=== PATIENT | female | born 1975 | race Caucasian/White ===

== ENCOUNTER 2022-12-19 14:23 | Emergency (ER) | payer BC, SELFPAY ==
--- OUTSIDE RECORDS SUMMARY | 2022-12-19 14:28 | XMS REPORT | Continuity of Care Document ---
:1975 Author Organization [facility] t Address [address] [place] [address] Dr. [address] [place] [address] Care Team Providers Name Role Phone Tere Goldstein Primary Care Physician Tere Goldstein Attending Clinician SHAI SHERIFF Attending Clinician Unavailable Shai Navas Attending Clinician JORDAN MACIAS Attending Clinician Unavailable Jordan Macias DO Attending Clinician SIS IBRAHIM Attending Clinician Unavailable RENAY CALL Attending Clinician Unavailable Renay Espinoza Attending Clinician Giselle Smith Attending Clinician TERE FERRARA Attending Clinician Unavailable Yemi Palencia MD Attending Clinician Sis Walker Attending Clinician Morelia Michael MD Attending Clinician MORELIA MICHAEL Attending Clinician Unavailable Doctor Unassigned, Zeba Attending Clinician Unavailable JEREMIAS BATES Attending Clinician Unavailable Jeremias Aiken Attending Clinician Сергей DIAZ, Kerry Parish Attending Clinician Unavailable GISELLE PRADO Attending Clinician Unavailable Only, Ang Db Test Attending Clinician Unavailable WILLY REDMOND Attending Clinician Unavailable RUSTY LEDBETTER Attending Clinician Unavailable LANIE ARBOLEDA Attending Clinician Unavailable NGUYỄN MACDONALD Attending Clinician Unavailable SHAI SHERIFF Admitting Clinician Unavailable JORDAN MACIAS Admitting Clinician Unavailable JEREMIAS BATES Admitting Clinician Unavailable NGUYỄN MACDONALD Admitting Clinician Unavailable Problems Condition Condition Condition Status Onset Resolution Last Treating Co mments Source Name Details Category Date Date Treatment Clinician Date Acute Acute Disease Active Univers bacterial bacterial 6- ity of otitis otitis 00:00: [place] media, media, 00 Medical bilateral bilateral Bran ch Acute Acute Disease Active Univers otalgia, otalgia, 6-22 [place] Subacute Subacute Disease Active Unive rs maxillary maxillary 6 [place] of sinusitis sinusitis 00:[place] [facility] [place] Acute Acute Disease Active [facility] otalgia, otalgia, 05-16 [place] of bilateral bilateral 00:[place] [facility] [place] Non-produc Non-produc Disease Active U nivers tive cough tive cough -22 it y of 00:00: Medical Branch Obesity Obesity Disease Active Univers (BMI (BMI 7-09 ity of 30-39.9) 30-39.9) 00:00: Medical Branch Allergies, Adverse Reactions, Alerts Allergy Allergy Status Severity Reaction(s) Onset Inactive Treating Comm ents Source Name Type Date Date Clinician Influenz Propensi Active Nausea 2018-11 Univer s a ty to and/or 2-31 ity of Vacc,Tri adverse Vomiting 00:00: [place] 2007 reaction 00 Medical (Live) s Branch INFLUENZ DRUG Active N/V 2018-11 Univers A 2-31 ity of VACC,TRI 00:00: 2007 Medical (LIVE) Branch Hydrocod Propensi Active Hives 2017-11 Univer s one ty to 2-27 ity of adverse 00:00: [place] reaction Medical s Branch Butorpha Propensi Active Hives 2017-11 Univer s nol ty to 2-27 ity of Tartrate adverse 00:00: [place] reaction Medical s Branch Pentazoc Propensi Active Hives 2017-11 Univer s ine ty to 2-27 ity of Lactate adverse 00:00: [place] reaction 00 Medical s Branch HYDROCOD DRUG Active Hives 2018- Univers ONE INGREDI 2-27 ity of 00:00: [place] 00 Medical Branch BUTORPHA DRUG Active Hives 2018- Univers NOL INGREDI 2-27 ity of TARTRATE 00:00: [place] 00 Medical Branch PENTAZOC DRUG Active Hives 2018- Univers INE INGREDI 2-27 ity of LACTATE 00:00: [place] 00 Medical Branch Aspirin Propensi Active Hives 2017-0 Univers ty to 7 ity of adverse 00:00: [place] reaction 00 Medical s Branch Codeine Propensi Active Anaphylaxis 2017-0 Un tomasz ty to 06-02 ity of adverse 00:00: [place] reaction 00 Medical s Branch Hydromor Propensi Active Hives 2017-0 Univer s phone ty to 06-02 ity of (Bulk) adverse 00:00: [place] reaction 00 Medical s Branch Levoflox Propensi Active Anaphylaxis 2017-0 U nivers acin ty to 06-02 ity of adverse 00:00: [place] reaction 00 Medical s Branch Moxiflox Propensi Active Hives 2017-0 Univer s acin ty to 06-02 ity of adverse 00:00: [place] reaction 00 Medical s Branch Penicill Propensi Active Anaphylaxis 2017-0 U nivers in ty to 06-02 ity of adverse 00:00: [place] reaction 00 Medical s Branch Sulfa Propensi Active Anaphylaxis 2017-0 Uni vers (Sulfona ty to 06-02 ity of mide adverse 00:00: [place] Antibiot reaction 00 Medica l ics) s Branch Tramadol Propensi Active Hives 2017-0 Univer s ty to 06-02 ity of adverse 00:00: [place] reaction 00 Medical s Branch ASPIRIN DRUG Active Hives 2017-0 Univers INGREDI 7- ity of 00:00: [place] 00 Medical Branch CODEINE DRUG Active Anaphylaxis 2017-0 Univ ers INGREDI 06-02 ity of 00:00: [place] 00 Medical Branch HYDROMOR DRUG Active Hives 2017-0 Univers PHONE 7- ity of (BULK) 00:00: [place] 00 Medical Branch LEVOFLOX DRUG Active Anaphylaxis 2017-0 Uni vers ACIN INGREDI - ity of 00:00: [place] 00 Medical Branch MOXIFLOX DRUG Active Hives 2017-0 Univers ACIN INGREDI 06-02 ity of 00:00: [place] 00 Medical Branch PENICILL DRUG Active Anaphylaxis Uni vers IN INGREDI 06-02 ity of 00:00: [place] 00 Medical Branch SULFA Drug Active Anaphylaxis Unive rs (SULFONA Class 06-02 ity of MIDE 00:00: [place] ANTIBIOT 00 Medical ICS) Branch TRAMADOL DRUG Active Hives Univers INGREDI 06-02 ity of 00:00: [place] 00 Medical Branch Social History Social Habit Start Date Stop Date Quantity Comments Source Exposure to 2022-11-29 2022-12-09 Yes University SARS-CoV-2 (event) 00:00:00 17:27:00 [facility] Alcohol intake 2022-12-09 2022-12-09 Current University of 00:00:00 00:00:00 non-drinker of [facility] alcohol Branch (finding) Cigarettes smoked 2016-05-31 2016-05-31 Univers ity of current (pack per 00:00:00 00:00:00 [facility] ) - Reported Branch Cigarette 2016-05-31 2016-05-31 University of pack-years 00:00:00 00:00:00 [facility] Tobacco use and 2016-05-31 2016-05-31 Smokeless Universit y of exposure 00:00:00 00:00:00 tobacco non-user [facility] dical [place] Tobacco Comment 2016-05-31 2016-05-31 1-2 packs per Univer sity of 00:00:00 00:00:00 day [facility] History of tobacco 2014-06-09 Cigarette Smoker University of use 00:00:00 [facility] Sex Ass[birth year] Universit y of 00:00:00 00:00:00 [facility] Smoking Status Start Date Stop Date Source Ex-smoker 2016-05-31 00:00:00 2016-05-31 00:00:00 Universi ty of [facility] Medications Ordered Filled Start Stop Current Ordering Indication Dosage Frequency Signature Comments Components Source Medication Medication Date Date Medication? Clinician (SIG) Name Name NaCl 0.9% 2022- No 1000mL at 999 Uni vers (NS) bolus 1-16 01-16 mL/hr, ity of infusion 01:30: 01:30 1,000 mL, [place] 1,000 mL 00 :00 IV Medical Infusion, Branch ONCE, 1 dose, On 12/09/22 at 1930, YANN ipratropium 2022- No 6mL 6 mL, Univ ers -albuteroL 12-10 Inhalation it y of (DUONEB) 00:15: 23:41 , ONCE, 1 [place] 0.5 mg-3 00 :00 dose, On Medical mg(2.5 mg [facility] base)/3 mL 12/09/22 at nebulizer 1815, solution 6 Routine mL acetaminoph 2022- No 650mg 650 mg, U nivers en 12-09 Oral, ity of (TYLENOL) 23:45: 23:43 ONCE, 1 [place] tablet 650 00 :00 dose, On Medic al mg [facility] 12/09/22 at 1745, YANN dexamethaso 2022- No 10mg 10 mg, Uni vers ne sod phos 12-09 Intramuscu i ty of PF 23:45: 23:44 lar, ONCE, [place] injection 00 :00 1 dose, On Medi ruddy 10 mg [facility] 12/09/22 at 1745, 1 mL azithromyci 0 Yes [id number] 250mg Take 1 Univers n 250 mg 1-15 tablet by ity of tablet 00:00: mouth in [place] 00 the Medical morning. Branch benzonatate 0 Yes [id number] 100mg Take 1 Univers 100 mg 1-15 capsule by ity of capsule 00:00: mouth 3 [place] 00 (three) Medical times Branch daily as needed for Cough. dextrometho 0 Yes [id number] 10mL Take 10 mL Univers rphan-guaif 1-15 by mouth ity of enesin 00:00: every 6 [place] 10-100 mg/5 00 (six) Medical mL solution hours as Bran ch needed for Cough. methylPREDN 0 Yes [id number] Take by Univers ISolone 4 1-15 mouth ity of mg tablets 00:00: [place]INSTRU [place] 00 CTIONS. Medical follow Branch package directions albuterol 0 Yes [id number] 2{puff} Inhale 2 Univers 90 1-15 Puffs ity of mcg/actuati 00:00: every 4 [place] on inhaler 00 (four) Medical hours as Branch needed for Wheezing or Shortness of Breath. azithromyci 3-0 Yes [id number] 250mg Take 1 Univers n 250 mg 1-15 tablet by ity of tablet 00:00: mouth in [place] 00 the Medical morning. Branch benzonatate 3-0 Yes [id number] 100mg Take 1 Univers 100 mg 1-15 capsule by ity of capsule 00:00: mouth 3 [place] 00 (three) Medical times Branch daily as needed for Cough. dextrometho 2023-0 Yes [id number] 10mL Take 10 mL Univers rphan-guaif 1-15 by mouth ity of enesin 00:00: every 6 [place] 10-100 mg/5 00 (six) Medical mL solution hours as Bran ch needed for Cough. methylPREDN 2022-0 Yes [id number] Take by Univers ISolone 4 1-15 mouth ity of mg tablets 00:00: [place] CTIONS. Medical follow Branch package directions albuterol 2022-0 Yes [id number] 2{puff} Inhale 2 Univers 90 1-15 Puffs ity of mcg/actuati 00:00: every 4 [place] on inhaler 00 (four) Medical hours as Branch needed for Wheezing or Shortness of Breath. azithromyci 2022-0 Yes [id number] 250mg Take 1 Univers n 250 mg 1-15 tablet by ity of tablet 00:00: mouth in [place] 00 the Medical morning. Branch benzonatate 3-0 Yes [id number] 100mg Take 1 Univers 100 mg 1-15 capsule by ity of capsule 00:00: mouth 3 [place] 00 (three) Medical times Branch daily as needed for Cough. dextrometho 2023-0 Yes [id number] 10mL Take 10 mL Univers rphan-guaif 1-15 by mouth ity of enesin 00:00: every 6 [place] 10-100 mg/5 00 (six) Medical mL solution hours as Bran ch needed for Cough. methylPREDN 3-0 Yes [id number] Take by Univers ISolone 4 1-15 mouth ity of mg tablets 00:00: [place]INSTRU [place] 00 CTIONS. Medical follow Branch package directions albuterol Yes [id number] 2{puff} Inhale 2 Univers 90 1-15 Puffs ity of mcg/actuati 00:00: every 4 [place] on inhaler 00 (four) Medical hours as Branch needed for Wheezing or Shortness of Breath. lisinopriL Yes [id number] 10mg Take 1 Univers 10 mg 1-06 tablet by ity of tablet 00:00: mouth in [place] the Medical morning. Branch MUST BE SEEN FOR FURTHER REFILLS lisinopriL Yes [id number] 10mg Take 1 Univers 10 mg 1-06 tablet by ity of tablet 00:00: mouth in [place] the Medical morning. Branch MUST BE SEEN FOR FURTHER REFILLS lisinopriL Yes [id number] 10mg Take 1 Univers 10 mg 1-06 tablet by ity of tablet 00:00: mouth in [place] the Medical morning. Branch MUST BE SEEN FOR FURTHER REFILLS lisinopriL Yes [id number] 10mg Take 1 Univers 10 mg 1-06 tablet by ity of tablet 00:00: mouth in [place] the Medical morning. Branch MUST BE SEEN FOR FURTHER REFILLS lisinopriL 2021-11 Yes [id number] 10mg Take 1 Univers 10 mg 2-12 tablet by ity of tablet 00:00: mouth in [place] the Medical morning. Branch MUST BE SEEN FOR FURTHER REFILLS lisinopriL 2021-11 No [id number] 10mg Take 1 Univers 10 mg 2-12 01-06 tablet by ity of tablet 00:00: 00:00 mouth in [place] 00 :00 the Medical morning. Branch MUST BE SEEN FOR FURTHER REFILLS lisinopriL 2021-11 Yes [id number] 10mg Take 1 Univers 10 mg 1-07 tablet by ity of tablet 00:00: mouth in [place] 00 the Medical morning. Branch MUST BE SEEN FOR FURTHER REFILLS lisinopriL 2021-11 No [id number] 10mg Take 1 Univers 10 mg 1-07 12-12 tablet by ity of tablet 00:00: 00:00 mouth in [place] 00 :00 the Medical morning. Branch MUST BE SEEN FOR FURTHER REFILLS ondansetron 2021- No [id number] 4mg U nivers (ZOFRAN-ODT 5-12 04-19 ity of ) 15:30: 14:30 [place] disintegrat 00 :00 Medical ing tablet Branch 4 mg ondansetron 2021- No [id number] 4mg 4 mg, Univers (ZOFRAN-ODT -12 04-19 Oral, ity of ) 15:30: 14:30 ONCE, 1 [place] disintegrat 00 :00 dose, On Medi ruddy ing tablet [place] Branch 4 mg 04/12/22 at 1030, Routine ondansetron 2021- No [id number] 4mg Take 1 Univers 4 mg 5-19 05-25 tablet by ity of disintegrat 00:00: 04:59 [place] ing tablet 00 :00 every 8 Medica l (eight) Branch hours as needed for Nausea and Vomiting (N/V) for up to 5 days. lisinopriL Yes [id number] 10mg Take 1 Univers 10 mg 5-10 tablet by ity of tablet 00:00: mouth [place] 00 daily. Medical MUST BE Branch SEEN FOR FURTHER REFILLS lisinopriL 0 Yes [id number] 10mg Take 1 Univers 10 mg 5-10 tablet by ity of tablet 00:00: mouth [place] 00 daily. Medical MUST BE Branch SEEN FOR FURTHER REFILLS lisinopriL 0 Yes [id number] 10mg Take 1 Univers 10 mg 5-10 tablet by ity of tablet 00:00: mouth [place] 00 daily. Medical MUST BE Branch SEEN FOR FURTHER REFILLS lisinopriL 0 Yes [id number] 10mg Take 1 Univers 10 mg 5-10 tablet by ity of tablet 00:00: mouth [place] 00 daily. Medical MUST BE Branch SEEN FOR FURTHER REFILLS lisinopriL 2021- No [id number] 10mg Take 1 Univers 10 mg 5-10 11-07 tablet by ity of tablet 00:00: 00:00 mouth [place] 00 :00 daily. Medical MUST BE Branch SEEN FOR FURTHER REFILLS lisinopriL 2021- No [id number] 10mg Take 1 Univers 10 mg 5-03 05-10 tablet by ity of tablet 00:00: 00:00 mouth [place] 00 :00 daily. Medical MUST BE Branch SEEN FOR FURTHER REFILLS rosuvastati 2021- No [id number] 20mg Take 1 Univers n 20 mg 5-03 05-10 tablet by ity of tablet 00:00: 00:00 mouth at [place] 00 :00 bedtime. Medical Branch doxycycline 2021- No [id number] 100mg Take 1 Univers hyclate 100 6-22 05-10 tablet by it y of mg tablet 00:00: 00:00 mouth 2 [place] 00 :00 (two) Medical times Branch daily. ibuprofen 2021- No [id number] 600mg Take 1 Univers 600 mg 6-22 05-10 tablet by ity of tablet 00:00: 00:00 mouth [place] 00 :00 every 6 Medical (six) Branch hours as needed for Pain (scale 4-6) or Temp > 38.5 C. cetirizine 2021- No [id number] 10mg Take 1 Univers (ZYRTEC) 10 6-22 05-10 tablet by it y of mg tablet 00:00: 00:00 mouth at [place] 00 :00 bedtime as Medical needed for Branch Allergies. benzonatate 2021- No [id number] 100mg Take 1 Univers (TESSALON 6-22 05-10 capsule by ity of SHAMEKAES) 100 00:00: 00:00 mouth 3 [place] mg capsule 00 :00 (three) Medica l times Branch daily. OXYCODONE Yes 7.5mg Take 7.5 Uni vers HCL/ACETAMI 6-10 mg by ity of NOPHEN 16:27: mouth. [place] (PERCOCET 19 Take two Medica l ORAL) tablet a Branch day HYDROXYZINE Yes 25mg Take 25 mg Univers HCL ORAL 6-10 by mouth. ity of 16:27: Takes 2 [place] 19 tabs at Medical Branch AMITRIPTYLI Yes 10mg Take 10 mg Univers NE HCL 6-10 by mouth ity of (AMITRIPTYL 16:27: at [place] INE ORAL) 19 bedtime. Medica l Branch OXYCODONE Yes 7.5mg Take 7.5 Uni vers HCL/ACETAMI 6-10 mg by ity of NOPHEN 16:27: mouth. [place] (PERCOCET 19 Take two Medica l ORAL) tablet a Branch day HYDROXYZINE Yes 25mg Take 25 mg Univers HCL ORAL 6-10 by mouth. ity of 16:27: Takes 2 [place] 19 tabs at Medical [place] AMITRIPTYLI Yes 10mg Take 10 mg Univers NE HCL 6-10 by mouth ity of (AMITRIPTYL 16:27: at [place] INE ORAL) 19 bedtime. Medica Branch OXYCODONE Yes 7.5mg Take 7.5 Uni vers HCL/ACETAMI 6-10 mg by ity of NOPHEN 16:27: mouth. [place] (PERCOCET 19 Take two Medica l ORAL) tablet a Branch day HYDROXYZINE Yes 25mg Take 25 mg Univers HCL ORAL 6-10 by mouth. ity of 16:27: Takes 2 [place] 19 tabs at [facility] AMITRIPTYLI Yes 10mg Take 10 mg Univers NE HCL 6-10 by mouth ity of (AMITRIPTYL 16:27: at [place] INE ORAL) 19 bedtime. [facility] Branch OXYCODONE Yes 7.5mg Take 7.5 Uni vers HCL/ACETAMI 6-10 mg by ity of NOPHEN 16:27: mouth. [place] (PERCOCET 19 Take two Medica l ORAL) tablet a Branch day HYDROXYZINE Yes 25mg Take 25 mg Univers HCL ORAL 6-10 by mouth. ity of 16:27: Takes 2 [place] 19 tabs at [facility] AMITRIPTYLI Yes 10mg Take 10 mg Univers NE HCL 6-10 by mouth ity of (AMITRIPTYL 16:27: at [place] INE ORAL) 19 [facility]. [facility] OXYCODONE Yes 7.5mg Take 7.5 Uni vers HCL/ACETAMI 6-10 mg by ity of NOPHEN 16:27: mouth. [place] (PERCOCET 19 Take two Medica l ORAL) tablet a Branch day HYDROXYZINE Yes 25mg Take 25 mg Univers HCL ORAL 6-10 by mouth. ity of 16:27: Takes 2 [place] 19 tabs at [facility] AMITRIPTYLI Yes 10mg Take 10 mg Univers NE HCL 6-10 by mouth ity of (AMITRIPTYL 16:27: at [place] INE ORAL) 19 bedtime. Medica l Branch OXYCODONE 0 Yes 7.5mg Take 7.5 Uni vers HCL/ACETAMI 6-10 mg by ity of NOPHEN 16:27: mouth. [place] (PERCOCET 19 Take two Medica l ORAL) tablet a Branch day HYDROXYZINE 0 Yes 25mg Take 25 mg Univers HCL ORAL 6-10 by mouth. ity of 16:27: Takes 2 [place] 19 tabs at Medical [place] AMITRIPTYLI 0 Yes 10mg Take 10 mg Univers NE HCL 6-10 by mouth ity of (AMITRIPTYL 16:27: at [place] INE ORAL) 19 bedtime. Medica l Branch OXYCODONE 0 Yes 7.5mg Take 7.5 Uni vers HCL/ACETAMI 6-10 mg by ity of NOPHEN 16:27: mouth. [place] (PERCOCET 19 Take two Medica l ORAL) tablet a Branch day HYDROXYZINE Yes 25mg Take 25 mg Univers HCL ORAL 6-10 by mouth. ity of 16:27: Takes 2 [place] 19 tabs at [facility] AMITRIPTYLI 0 Yes 10mg Take 10 mg Univers NE HCL 6-10 by mouth ity of (AMITRIPTYL 16:27: at [place] INE ORAL) 19 bedtime. Medica l Branch OXYCODONE Yes 7.5mg Take 7.5 Uni vers HCL/ACETAMI 6-10 mg by ity of NOPHEN 16:27: mouth. [place] (PERCOCET 19 Take two Medica l ORAL) tablet a Branch day HYDROXYZINE Yes 25mg Take 25 mg Univers HCL ORAL 6-10 by mouth. ity of 16:27: Takes 2 [place] 19 tabs at [facility] AMITRIPTYLI 0 Yes 10mg Take 10 mg Univers NE HCL 6-10 by mouth ity of (AMITRIPTYL 16:27: at [place] INE ORAL) 19 bedtime. Medica l Branch OXYCODONE 2020-0 Yes 7.5mg Take 7.5 Uni vers HCL/ACETAMI 6-10 mg by ity of NOPHEN 16:27: mouth. [place] (PERCOCET 19 Take two Medica l ORAL) tablet a Branch day HYDROXYZINE Yes 25mg Take 25 mg Univers HCL ORAL 6-10 by mouth. ity of 16:27: Takes 2 [place] 19 tabs at Medical Branch AMITRIPTYLI Yes 10mg Take 10 mg Univers NE HCL 6-10 by mouth ity of (AMITRIPTYL 16:27: at [place] INE ORAL) 19 bedtime. Medica l Branch OXYCODONE Yes 7.5mg Take 7.5 Uni vers HCL/ACETAMI 6-10 mg by ity of NOPHEN 16:27: mouth. [place] (PERCOCET 19 Take two Medica l ORAL) tablet a Branch day HYDROXYZINE Yes 25mg Take 25 mg Univers HCL ORAL 6-10 by mouth. ity of 16:27: Takes 2 [place] 19 tabs at Medical Branch AMITRIPTYLI Yes 10mg Take 10 mg Univers NE HCL 6-10 by mouth ity of (AMITRIPTYL 16:27: at [place] INE ORAL) 19 bedtime. Medica l Branch ondansetron 2021- No [id number] 4mg Take 1 Univers (ZOFRAN 01-03 05-10 tablet by ity of ODT) 4 mg 00:00: 00:00 mouth [place] disintegrat 00 :00 every 8 Medic al ing tablet (eight) Branch hours as needed for Nausea and Vomiting (N/V). tamsulosin 2021- No [id number] .4mg Take 1 Univers 0.4 mg 24 01-03 05-10 capsule by ity of hr capsule 00:00: 00:00 mouth at [place] 00 :00 bedtime. Medical Branch phenazopyri 2021- No [id number] 200mg Take 1 Univers dine 200 mg 01-03 05-10 tablet by it y of tablet 00:00: 00:00 mouth 3 [place] 00 :00 (three) Medical times Branch daily. fluticasone 2017-11- No [id number] 2{spray Use 2 Univers 50 01-21 05-10 } Sprays in ity of mcg/actuati 00:00: 00:00 each [place] on nasal 00 :00 nostril Medical spray daily. Branch Immunizations Ordered Filled Immunization Date Status Comments [facility] e Immunization Name Name SARS-COV-2 COVID-19 2021-03-09 Completed Unive rsity of PFIZER VACCINE 00:00:00 [facility] SARS-COV-2 COVID-19 2021-03-09 Completed Unive rsity of PFIZER VACCINE 00:00:00 [facility] Branch SARS-COV-2 COVID-19 2021-03-09 Completed Unive rsity of PFIZER VACCINE 00:00:00 [facility] SARS-COV-2 COVID-19 2021-03-09 Completed Unive rsity of PFIZER VACCINE 00:00:00 [facility] Branch SARS-COV-2 COVID-19 2021-03-09 Completed Unive rsity of PFIZER VACCINE 00:00:00 [facility] Branch SARS-COV-2 COVID-19 2021-03-09 Completed Unive rsity of PFIZER VACCINE 00:00:00 [facility] SARS-COV-2 COVID-19 2021-03-09 Completed Unive rsity of PFIZER VACCINE 00:00:00 [facility] SARS-COV-2 COVID-19 2021-03-09 Completed Unive rsity of PFIZER VACCINE 00:00:00 [facility] SARS-COV-2 COVID-19 2021-03-09 Completed Unive rsity of PFIZER VACCINE 00:00:00 [facility] SARS-COV-2 COVID-19 2021-03-09 Completed Unive rsity of PFIZER VACCINE 00:00:00 [facility] SARS-COV-2 COVID-19 2021-02-16 Completed Unive rsity of PFIZER VACCINE 00:00:00 [facility] SARS-COV-2 COVID-19 2021-02-16 Completed Unive rsity of PFIZER VACCINE 00:00:00 [facility] SARS-COV-2 COVID-19 2021-02-16 Completed Unive rsity of PFIZER VACCINE 00:00:00 [facility] SARS-COV-2 COVID-19 2021-02-16 Completed Unive rsity of PFIZER VACCINE 00:00:00 [facility] SARS-COV-2 COVID-19 2021-02-16 Completed Unive rsity of PFIZER VACCINE 00:00:00 [facility] SARS-COV-2 COVID-19 2021-02-16 Completed Unive rsity of PFIZER VACCINE 00:00:00 [facility] SARS-COV-2 COVID-19 2021-02-16 Completed Unive rsity of PFIZER VACCINE 00:00:00 [facility] SARS-COV-2 COVID-19 2021-02-16 Completed Unive rsity of PFIZER VACCINE 00:00:00 [facility] SARS-COV-2 COVID-19 2021-02-16 Completed Unive rsity of PFIZER VACCINE 00:00:00 [facility] SARS-COV-2 COVID-19 2021-02-16 Completed Unive rsity of PFIZER VACCINE 00:00:00 [facility] Vital Signs Vital Name Observation Time Observation Value Comments Source Systolic blood 2022-12-10 01:41:05 116 mm[Hg] Univer sity of pressure [facility] Diastolic blood 2022-12-10 01:41:05 67 mm[Hg] Unive rsity of [facility] Heart rate 2022-12-10 01:41:05 100 /min [facility] Body temperature 2022-12-10 01:41:[address] [facility] ersity of [facility] Respiratory rate 2022-12-10 01:41:05 19 /min [facility] in 2022-12-10 01:41:05 100 /min [place] of Arterial blood by [facility] Pulse oximetry [place] Body height 2022-12-09 23:29:00 154.9 cm [facility] Body weight 2022-12-09 23:29:00 73.936 kg [facility] BMI 2022-12-09 23:29:00 30.80 kg/m2 [facility] Systolic blood 2022-07-02 20:44:00 140 mm[Hg] Univer sity of pressure [facility] Diastolic blood 2022-07-02 20:44:00 89 mm[Hg] Unive rsity of pressure [facility] Heart rate 2022-07-02 20:44:00 99 /min [facility] Body temperature 2022-07-02 20:44:00 36.39 Nadia Univ ersity of [facility] Respiratory rate 2022-07-02 20:44:00 18 /min [facility] Body height 2022-07-02 20:44:00 154.9 cm Universi ty of [place] [facility] Body weight 2022-07-02 20:44:00 72.576 kg Universi ty of [place] [facility] BMI 2022-07-02 20:44:00 30.23 kg/m2 Universi ty of [place] [facility] Oxygen saturation in 2022-07-02 20:44:00 100 /min University of Arterial blood by [facility] Pulse oximetry Branch Systolic blood 2022-04-12 14:16:00 122 mm[Hg] Univer sity of pressure [place] [facility] Diastolic blood 2022-04-12 14:16:00 80 mm[Hg] Unive rsity of pressure [place] [facility] Heart rate 2022-04-12 14:16:00 80 /min Universi ty of [place] [facility] Body temperature 2022-04-12 14:16:00 36.94 Nadia Univ ersity of [place] [facility] Respiratory rate 2022-04-12 14:16:00 16 /min Univ ersity of [place] [facility] Body height 2022-04-12 14:16:00 154.9 cm Universi ty of [place] [facility] Body weight 2022-04-12 14:16:00 72.689 kg Universi ty of [place] [facility] BMI 2022-04-12 14:16:00 30.28 kg/m2 Universi ty of [place] [facility] Oxygen saturation in 2022-04-12 14:16:00 98 /min University of Arterial blood by [facility] Pulse oximetry Branch Systolic blood 2022-04-03 21:28:00 124 mm[Hg] Univer sity of pressure [place] [facility] Diastolic blood 2022-04-03 21:28:00 76 mm[Hg] Unive rsity of pressure [place] [facility] Heart rate 2022-04-03 21:28:00 74 /min Universi ty of [place] [facility] Body height 2022-04-03 21:28:00 156.2 cm Universi ty [facility] [place] [facility] Body weight 2022-04-03 21:28:00 75.66 kg [facility] BMI 2022-04-03 21:28:00 31.01 kg/m2 [facility] Oxygen saturation in 2022-04-03 21:28:00 98 /min [facility] Arterial blood by [facility] Pulse oximetry Branch Procedures Procedure Date / Time Performed Performing Clinician Vivian jensen TROPONIN I 2022-12-10 00:43:00 Shai Sheriff [facility] COMP. METABOLIC PANEL 2022-12-10 00:43:00 Shai Sheriff [facility] ([id number]) [facility] CBC WITH DIFF 2022-12-10 00:43:00 Shai Sheriff [facility] XR CHEST 1 VW 2022-12-09 23:49:14 Shai Sheriff [facility] RAPID INFLUENZA A/B 2022-12-09 23:39:00 Shai Sheriff [facility] COVID-19 (ID NOW 2022-12-09 23:39:00 Shai Sheriff [facility] RAPID TESTING) [facility] CONSENT/REFUSAL FOR 2022-12-09 23:22:11 [facility] TREATMENT XR ELBOW >3 VW RIGHT 2022-07-02 21:08:22 Jordan Macias [facility] CONSENT/REFUSAL FOR 2022-07-02 20:39:46 Doctor Un[facility]igned, [facility] TREATMENT Encounters Start End Encounter Admission Attending Care Care Encounter Source Date/Time Date/Time Type Type Clinicians Facility Department ID 2021-09-23 Emergency [facility] [id number] Univers 04:51:26 [facility] 2022-12-19 2022-12-19 Telephone Alem [facility] [id number] Univers 00:00:00 00:00:00 [facility] 350.1.13.10 it y of [place] 4.2.7.2.686 [place] as LEE?BLEA [id number] [address] MEDICAL OFFICE BUILDING 2022-12-11 2022-12-11 [facility]ill [facility] 1.2.840.114 [id number] Univers 00:00:00 00:00:00 Tere HEALTH 350.1.13.10 it y of [place] 4.2.7.2.686 Bull as LEE?BLEA [id number] [address] OFFICE [facility] 2022-12-09 2022-12-09 Emergency X JAZIEL, [facility] ERT [id number] Univers 17:30:00 19:49:00 SHAINica mittal [facility] 2022-12-09 2022-12-09 Emergency [facility] 1.2.840.114 [id number] Univers 17:30:00 19:49:00 Shai Jacky BARRERA 350.1.13.10 i [place].2.[place] [id number] [address] 2022-11-29 2022-11-29 [facility] 1.2.840.114 [id number] Univers 00:00:00 00:00:00 Tere HEALTH 350.1.13.10 it y of [place] 4.2.7.2.686 Bull as LEE?BLEA [id number] [address] OFFICE [facility] 2022-11-05 2022-11-05 Jennie [facility] 1.2.840.114 [id number] Univers 00:00:00 00:00:00 Tere HEALTH 350.1.13.10 it y of [place] 4.2.7.2.686 [place] as LEE?BLEA [id number] [address] 2022-10-01 2022-10-01 [facility] 1.2.840.114 [id number] Univers 00:00:00 00:00:00 Tere HEALTH 350.1.13.10 it y of [place] 4.2.7.2.686 [place] as LEE?BLEA [id number] [address] OFFICE [facility] 2022-07-02 2022-07-02 Emergency Dusty [facility] ERT [id number] Univers 15:45:00 16:47:00 JORDAN daxa [facility] 2022-07-02 2022-07-02 Emergency [facility] [id number] Univers 15:45:00 16:47:00 Jordan BARRERA 350.1.13.10 i ty [place].2.7.2.[place] [id number] [facility] [address] 2022-07-02 2022-07-02 Outpatient R ALEXANDRIA [facility] [id number] Univers 15:20:00 15:20:00 SIS everetty o f [facility] 2022-05-25 2022-05-25 Patient [facility] 1.2.840.114 [id number] Univers 00:00:00 00:00:00 Secure Msg Tere HEALTH 350.1.13.10 ity of [place] 4.2.7.2.686 [place] LEE?BLEA [id number] [address] MEDICAL OFFICE [facility] 2022-04-12 2022-04-12 Outpatient R GARETT [facility] [id number] Univers 09:20:00 09:40:46 RENAY ity [facility] 2022-04-12 2022-04-12 Urgent Renay Call [facility] 1.2.840.114 [id number] Univers 09:20:00 09:40:46 Care Eve, Giselle HEALTH 350.1.13.10 ity of [place] 4.2.7.2.686 [place] LEE?BLEA [id number] [facility] [address] MEDICAL OFFICE [facility] 2022-04-03 2022-04-03 Outpatient R [facility] [id number] Univers 16:30:00 17:06:31 TERE ity of [facility] 2022-04-03 2022-04-03 Office [facility] 1.2.840.114 [id number] Univers 16:30:00 17:06:31 Visit Tere HEALTH 350.1.13.10 it y of [place] 4.2.7.2.686 [place] LEE?BLEA [id number] [address] MEDICAL OFFICE [facility] 2022-03-27 2022-03-27 Patient Alem [facility] 1.2.840.114 [id number] Univers 00:00:00 00:00:00 Secure Msg Tere HEALTH 350.1.13.10 ity of [place] 4.2.7.2.686 Bull as LEE?BLEA [id number] [facility] [address] MEDICAL OFFICE [facility] 2022-03-25 2022-03-25 Refill Talha [facility] 1.2.840.114 [id number] Univers 00:00:00 00:00:00 Yemi HEALTH 350.1.13.10 it y of [place] 4.2.7.2.686 Bull as LEE?BLEA [id number] [address] MEDICAL OFFICE [facility] 2022-03-12 2022-03-12 Urgent Sis Ibrahim [facility] 1.2.840. 114 [id number] Univers 13:20:00 13:20:00 Morelia Cordova [facility] 350.1.13.10 ity of [place] 4.2.7.2.686 Bull as LEE?BLEA [id number] [facility] [address] [facility] OFFICE [facility] 2022-03-12 2022-03-12 Outpatient Dorcas MICHAEL [facility] [id number] Univers 13:20:00 10:19:51 MORELIA ity of [facility] 2022-02-26 2022-02-26 Refill Alem [facility] 1.2.840.114 [id number] Univers 00:00:00 00:00:00 Tere HEALTH 350.1.13.10 it y of [place] 4.2.7.2.686 Bull as LEE?BLEA [id number] [address] OFFICE [facility] 2022-01-18 2022-01-18 Orders Doctor JACK 1.2.840.114 [id number] Univers 00:00:00 00:00:00 Only Unassigned, LOY 350.1.13.10 ity of [place] [facility] 4.2.7.2.686 Bull as [id number] [address] 2021-11-30 2021-11-30 Refill [facility] 1.2.840.114 [id number] Univers 00:00:00 00:00:00 Unassigned, HEALTH 350.1.13.10 ity of [place] 4.2.7.2.686 Bull as PROFESSIO [id number] Ne dical NAL [address] OFFICE [facility] ONE 2021-10-26 2021-10-26 Jennie [facility] 1.2.840.114 [id number] Univers 00:00:00 00:00:00 Yemi HEALTH 350.1.13.10 it y of [place] 4.2.7.2.686 [place] as PROFESSIO [id number] [facility] NAL [address] [place] [address] ONE 2021-10-02 2021-10-02 Emergency X [facility] ERT [id number] Univers 17:08:00 21:42:00 FOLUSHO ity of [facility] 2021-10-02 2021-10-02 Emergency [facility] 1.2.840.114 [id number] Univers 17:08:00 21:42:00 Folusho F GAY 350.1.13.10 ity of [place] 4.2.7.2.686 [place] [facility] [id number] [facility] [address] 2021-10-02 2021-10-02 Orders Doctor GUERO 1.2.840.114 [id number] Univers 00:00:00 00:00:00 Only Unassigned, LOY 350.1.13.10 ity of [place] [facility] 4.2.7.2.686 Bull as [id number] [facility] [address] 2021-09-24 2021-09-24 Refcarlos [facility] 1.2.840.114 [id number] Univers 00:00:00 00:00:00 Yemi HEALTH 350.1.13.10 it y of [place] 4.2.7.2.686 Bull as PROFESSIO [id number] Ne dical NAL 044 [facility] ONE 2021-08-27 2021-08-27 Jenn[facility] 1.2.840.114 [id number] Univers 00:00:00 00:00:00 Yemi Health 350.1.13.10 it y of [place] 4.2.7.2.686 Bull as Professio [id number] [facility] nal [address] [place] [address] One 2021-07-31 2021-07-31 Jennie Ferrara [facility] 1.2.840.114 [id number] Univers 00:00:00 00:00:00 Tere Health 350.1.13.10 it y of [place] 4.2.7.2.686 Bull as Professio [id number] [facility] [address] [facility] One 2021-07-30 2021-07-30 [facility] 1.2.840.114 [id number] Univers 00:00:00 00:00:00 Tere Health 350.1.13.10 it y of [place] 4.2.7.2.686 Bull as Professio [id number] [facility] 0[address] [facility] One 2021-07-29 2021-07-29 Letter СергейGUEOR waite 1.2.840.114 [id number] Univers 00:00:00 00:00:00 (Out) [place] LOY 350.1.13.10 it y of [facility] 4.2.7.2.686 Bull as [id number] [address] 2021-07-27 2021-07-27 Outpatient R EVE [facility] [id number] Univers 19:15:00 [facility]:15:00 [facility] 2021-07-27 2021-07-27 Laboratory Only, Ang Db Test [facility] 1.2.8 40.114 [id number] Univers 18:36:19 18:51:19 Only Eve Giselle [facility] 350.1.13.10 ity of [place] 4.2.7.2.686 Bull as Lee?Blea [id number] [facility] arpit [address] [facility] Office [facility] 2021-05-16 2021-05-16 Outpatient Dorcas PRADO [facility] [id number] Univers 18:00:00 18:00:00 GISELLE [facility] 2021-05-04 2021-05-04 Outpatient R NYLA [facility] [id number] Univers 16:20:00 16:20:00 [facility] 2021-03-23 2021-03-23 Outpatient Dorcas FERRARA [facility] [id number] Univers 11:00:00 11:00:00 TERE [facility] 2021-03-09 2021-03-09 Outpatient R KHLOE, [facility] [id number] Univers 07:50:00 07:53:27 RUSTY [facility] 2021-02-16 2021-02-16 Outpatient R ROBLES, [facility] [id number] Univers 08:00:00 07:56:51 LANIE [facility] 2020-06-25 2020-06-25 Outpatient R [facility] [id number] Univers 16:20:00 16:20:00 [facility] 2020-01-07 2020-01-07 Emergency X JANA, [facility] ERT [id number] Univers 19:08:38 22:24:00 JEREMIAS [facility] 2020-01-03 2020-01-03 Emergency X RENAE, [facility] ERT [id number] Univers 13:44:04 15:36:00 NGUYỄN [facility] Results Test Description Test Time Test Comments Results Result Comments Source TROPONIN I 2022-12-10 01:26:20 Test Item Value Reference Range Interpretation Comme nts TROPONIN I (test code = 0.001 ng/mL See_Comment [Au tomated message] The [id number]) system which ge nerated this result tra nsmitted reference range : <=0.034. The reference r warner was not used to int erpret this result as normal/abnormal . INGA (test code = INGA) Reference (Normal) Range (defined by the 99th percentile reference limit): <= 0.034 ng/mL Note: Cardiac troponin begins to rise 3-4 hours after the onset of ischemia. Repeat in 4-6 hours if the sample was drawn within 3-4 hours of the onset of the symptom and found normal. Diagnosis of myocardial injury is made with acute changes in cTn concentrations with at least one serial sample above the 99th percentile upper reference limit (URL), taken together with the patient's clinical presentation. Biotin has been reported to cause a negative bias, interpret results relative to patient's use of biotin. Lab Interpretation Normal (test code = 33876-5) [facility][id number][facility]2022-12-10 01:14:38 Test Item Value Reference Range Interpretation Comments NA (test code = 136 mmol/L 135-145 9304650248) K (test code = 3.6 mmol/L 3.5-5.0 6931454856) CL (test code = 100 mmol/L 98-108 6544251961) CO2 TOTAL (test code = 27 mmol/L 23-31 8588235666) AGAP (test code = 2-16 9010898002) BUN (test code = 11 mg/dL 7-23 6596995504) GLUCOSE (test code = 129 mg/dL 70-110 H 0315309986) CREATININE (test code = 0.81 mg/dL 0.50-1.04 7420699572) TOTAL BILI (test code = 0.7 mg/dL 0.1-1.9 8292382590) CALCIUM (test code = 9.0 mg/dL 8.6-10.6 2358479472) T PROTEIN (test code = 6.9 g/dL 6.3-8.2 8820480301) ALBUMIN (test code = 4.7 g/dL 3.5-5.0 5603549235) ALK PHOS (test code = 58 U/L 34-122 7806832683) ALTv (test code = 21 U/L 5-35 1742-6) AST(SGOT) (test code = 24 U/L 13-40 4238477051) eGFR (test code = mL/min/1.73m2 7695220876) INGA (test code = INGA) Association of Glomerular Filtration Rate (GFR) and Staging of Kidney Disease* + --+ --+ ------+| GFR (mL/min/1.73 m2) ?| With Kidney Damage ?| ?Without Kidney Damage+ --------+ --------+ +| ?>90 ?| ?Stage one ?| ? Normal ?+ ---+ ---+ -------+| ?60-89 ?| ?Stage two ?| ? Decreased GFR ? + --+ --+ ------+| ?30-59 ?| ?Stage three ?| ? Stage three ? + --+ --+ ------+| ?15-29 ?| ?Stage four ? | ? Stage four ?+ ---+ ---+ -------+| ?<15 (or dialysis) ? ?| ?Stage five ? | ? Stage five ?+ ---+ ---+ -------+ *Each stage assumes the associated GFR level has been in effect for at least three months. ?Stages 1 to 5, with or without kidney disease, indicate chronic kidney disease. Notes: Determination of stages one and two (with eGFR >59mL/min/1.73 m2) requires estimation of kidney damage for at least three months as defined by structural or functional abnormalities of the kidney, manifested by either:Pathological abnormalities or Markers of kidney damage (including abnormalities in the composition of the blood or urine or abnormalities in imaging tests). Lab Interpretation Abnormal (test code = 13181-1) [facility] WITH [id number] 01:01:20 Test Item Value Reference Range Interpretation Comments WBC (test code = See_Comment [Automated message] 6690-2) The system [employer] generated this result transmitted ref erence range: 4.30 - 1 1.10 10*3/?L. The re ference range was not u sed to interpret this result as normal/abnor mal. RBC (test code = See_Comment [Automated message] 549-8) The system [employer] generated this result transmitted ref erence range: 3.93 - 5 .25 10*6/?L. The re ference range was not u sed to interpret this result as normal/abnor mal. HGB (test code = 12.8 g/dL 11.6-15.0 718-7) HCT (test code = 39.7 % 35.7-45.2 4544-3) MCV (test code = 87.8 fL 80.6-95.5 787-2) MCH (test code = 28.3 pg 25.9-32.8 785-6) MCHC (test code = 32.2 g/dL 31.6-35.1 786-4) RDW-SD (test code 42.5 fL 39.0-49.9 = 06728-6) RDW-CV (test code 13.2 % 12.0-15.5 = 788-0) PLT (test code = See_Comment [Automated message] 997-3) The system [employer] generated this result transmitted ref erence range: 166 - 35 8 10*3/?L. The re ference range was not u sed to interpret this result as normal/abnor mal. MPV (test code = 9.7 fL 9.5-12.9 89490-1) NRBC/100 WBC (test See_Comment [Automat ed message] code = 6805463641) The syste m which generated this result transmitted ref erence range: 0.0 - 10 .0 /100 WBCs. The refer ence range was not u sed to interpret this result as normal/abnor mal. NRBC x10^3 (test See_Comment [Automated message] code = 1753240718) The syste m which generated this result transmitted ref erence range: 10*3/?L. The reference range was not used to interpr et this result as normal/abnormal . GRAN MAT (NEUT) % 61.2 % (test code = 770-8) IMM GRAN % (test 0.20 % code = 9891604895) LYMPH % (test code 28.6 % = 736-9) MONO % (test code 8.0 % = 5905-5) EOS % (test code = 1.6 % 713-8) BASO % (test code 0.4 % = 706-2) GRAN MAT 3.45 10*3/uL 1.88-7.09 x10^3(ANC) (test code = 5187689146) IMM GRAN x10^3 0.00-0.06 (test code = 7036451527) LYMPH x10^3 (test 1.61 10*3/uL 1.32-3.29 code = 731-0) MONO x10^3 (test 0.45 10*3/uL 0.33-0.92 code = 742-7) EOS x10^3 (test 0.09 10*3/uL 0.03-0.39 code = 711-2) BASO x10^3 (test 0.01-0.07 code = 704-7) [facility]"
--- NOTE | 2022-12-19 15:47 | RAD REPORT ---
EXAM DESCRIPTION: RAD - Shoulder Right 2 View - 12/19/2022 3:40 pm CLINICAL HISTORY: PAIN COMPARISON: No comparisons FINDINGS: No bone or joint abnormality detected.
--- NOTE | 2022-12-19 16:07 | ER ---
Nurse's Notes [facility] Name: Carey Marina Age: 47 yrs Sex: Female : 1975 Arrival Date: 12/19/2022 Time: 14:24 Bed IW1 Private MD: Diagnosis: Pain in right shoulder Presentation: 12/19 14:34 Chief complaint: Patient states: stepped in a soft spot on the floor and my leg went iw through the floor, i caught myself with my right arm and now it hurts since Saturday. Coronavirus screen: At this time, the client does not indicate any symptoms associated with coronavirus-19. Ebola Screen: Patient negative for fever greater than or equal to 101.5 degrees Fahrenheit, and additional compatible Ebola Virus Disease symptoms Patient denies exposure to infectious person. Patient denies travel to an Ebola-affected area in the 21 days before illness onset. No symptoms or risks identified at this time. Initial Sepsis Screen: Does the patient meet any 2 criteria? No. Patient's initial sepsis screen is negative. Does the patient have a suspected source of infection? No. Patient's initial sepsis screen is negative. Risk Assessment: Do you want to hurt yourself or someone else? Patient reports no desire to harm self or others. 14:34 Method Of Arrival: Ambulatory iw 14:34 Acuity: GHANSHYAM 4 iw Historical: - Allergies: 14:37 Codeine; iw 14:37 PENICILLINS; iw 14:37 Sulfa (Sulfonamide Antibiotics); iw 14:37 Aspirin; iw 14:37 Dilaudid; iw 14:37 mefoxine; iw 14:37 Hydrocodone-Acetaminophen; iw 14:37 Lortab; iw 14:37 Levaquin; iw 14:37 Stadol; iw 14:37 Talwin; iw Screenin:03 Abuse screen: Denies threats or abuse. Denies injuries from another. Nutritional jl7 screening: No deficits noted. Tuberculosis screening: No symptoms or risk factors identified. Vital Signs: 14:34 BP 148 / 86; Pulse 89; Resp 16; Temp 98.2; Pulse Ox 98% on R/A; iw ED Course: 14:24 Patient arrived in ED. am2 14:30 Suri Alba FNP-C is PHCP. kb 14:30 Jase Vines MD is Attending Physician. kb 14:36 Triage completed. iw 14:36 Arm band placed on. iw 15:42 Shoulder Right (2 View) XRAY In Process Unspecified. EDMS 17:03 Patient has correct armband on for positive identification. jl7 17:03 No provider procedures requiring assistance completed. Patient did not have IV access jl7 during this emergency room visit. Administered Medications: No medications were administered Outcome: 16:07 Discharge ordered by MD. kb 17:03 Discharged to home ambulatory. jl7 17:03 Condition: stable 17:03 Discharge instructions given to patient, Instructed on discharge instructions, follow up and referral plans. medication usage, Demonstrated understanding of instructions, follow-up care, medications, Prescriptions given X 1. 17:04 Patient left the ED. jl7 Signatures: Dispatcher [employer] EDWY Suri Alba, DECKHAND OYSTER DREDGE-C DECKHAND OYSTER DREDGE-May Viera, RN RN Cory Hanley RN RN jl7 Arabella Willard
--- NOTE | 2022-12-19 16:07 | EDPHYS ---
Physician Documentation [facility] Name: Carey aMrina Age: 47 yrs Sex: Female : 1975 Arrival Date: 12/19/2022 Time: 14:24 Bed IW1 Private MD: ED Physician Jase Vines HPI: 12/19 14:58 This 47 yrs old Female presents to ER via Ambulatory with complaints of Shoulder Injury.kb 14:58 The patient or guardian complains of pain, that is acute. right shoulder. Context: The kb problem was sustained at home, resulted from a fall, The patient experiences decreased range of motion, when attempts to raise arm, The patient reports no obvious deformity. Onset: The symptoms/episode began/occurred 5 day(s) ago. Modifying factors: the symptoms are alleviated by nothing. The symptoms are aggravated by movement. Associated signs and symptoms: The patient has no apparent associated signs or symptoms. Severity of symptoms: At their worst the symptoms were moderate, in the emergency department the symptoms are unchanged. Treatment prior to arrival includes: no previous treatment. The patient has not experienced similar symptoms in the past. The patient has not recently seen a physician. Pt reports she fell on Saturday and has had pain to right shoulder since then. . Historical: - Allergies: 14:37 Codeine; iw 14:37 PENICILLINS; iw 14:37 Sulfa (Sulfonamide Antibiotics); iw 14:37 Aspirin; iw 14:37 Dilaudid; iw 14:37 mefoxine; iw 14:37 Hydrocodone-Acetaminophen; iw 14:37 Lortab; iw 14:37 Levaquin; iw 14:37 Stadol; iw 14:37 Talwin; iw ROS: 14:58 Constitutional: Negative for fever, chills, and weight loss. kb 14:58 MS/extremity: Positive for decreased range of motion, pain. 14:58 All other systems are negative. Exam: 14:58 Constitutional: This is a well developed, well nourished patient who is awake, alert, kb and in no acute distress. Head/Face: Normocephalic, atraumatic. ENT: Moist Mucous membranes Cardiovascular: Regular rate and rhythm with a normal S1 and S2. No gallops, murmurs, or rubs. No pulse deficits. Respiratory: Respirations even and unlabored. No increased work of breathing. Talking in full sentences Abdomen/GI: Soft, non-tender. No distention Skin: Warm, dry with normal turgor. Normal color. Neuro: Awake and alert, GCS 15, oriented to person, place, time, and situation. Moves all extremities. Normal gait. Psych: Awake, alert, with orientation to person, place and time. Behavior, mood, and affect are within normal limits. 14:58 Musculoskeletal/extremity: Extremities: grossly normal except: noted in the right shoulder: decreased ROM, pain, tenderness, ROM: limited active range of motion due to pain, in the right shoulder, Circulation is intact in all extremities. Sensation intact. Vital Signs: 14:34 BP 148 / 86; Pulse 89; Resp 16; Temp 98.2; Pulse Ox 98% on R/A; iw MDM: 14:33 Patient medically screened. kb 15:03 Differential diagnosis: humeral head fracture, strain. Data reviewed: vital signs, kb nurses notes. 16:06 Counseling: I had a detailed discussion with the patient and/or guardian regarding: the kb historical points, exam findings, and any diagnostic results supporting the discharge/admit diagnosis, radiology results, the need for outpatient follow up, a family practitioner, a orthopedic surgeon, to return to the emergency department if symptoms worsen or persist or if there are any questions or concerns that arise at home. 12/19 14:33 Order name: Shoulder Right (2 View) XRAY; Complete Time: 15:49 kb Administered Medications: No medications were administered Disposition: 17:45 Co-signature as Attending Physician, Jase Vines MD I reviewed the patient's care rt provided by the Advanced Practice Provider and agree with the diagnosis and treatment plan. Disposition Summary: 12/19/22 16:07 Discharge Ordered Location: Home kb Condition: Stable kb Diagnosis - Pain in right shoulder kb Followup: kb - With: Emergency Department - When: As needed - Reason: Worsening of condition Followup: kb - With: Private Physician - When: 2 - 3 days - Reason: Recheck today's complaints, Continuance of care, Re-evaluation by your physician Discharge Instructions: - Discharge Summary Sheet kb - Shoulder Pain, Dllu-vq-Aomr kb Forms: - Medication Reconciliation Form kb - Thank You Letter kb - Antibiotic Education kb - Prescription Opioid Use kb Prescriptions: - orphenadrine citrate 100 mg Oral Tablet Sustained Release - take 1 tablet by ORAL route 2 times per day As needed; 20 tablet; Refills: 0, kb Product Selection Permitted Signatures: Dispatcher [employer] Suri Ga, HYUN ZAMUDIO-May Viera, RN RN Jase Harrison MD MD rt
[2022-12-19 17:08] VITALS: BP 148/86; TEMP 98.2; O2SAT 98
== END 2022-12-19 17:04 | disposition home or self-care (01) ==
LOC: ER 14:23
DX: M25.511 Pain in right shoulder (principal)